=== PATIENT | male | born 2000 | race Caucasian/White ===

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

== ENCOUNTER → 2021-09-24 | Outpatient (CLI) | payer BC ==
--- NOTE | 2021-09-24 16:25 | Diagnostic Imaging Report ---
EXAMINATION: Magnetic resonance imaging of the right knee without intravenous contrast. DATE: September 24, 2021. COMPARISON: None. INDICATION: 21-year-old male, right knee pain. TECHNIQUE: Multiplanar, multisequence noncontrast enhanced MR imaging was accomplished. FINDINGS: MENISCI: The medial and lateral meniscus are somewhat dysmorphic in appearance although without identified tear. There is no meniscal extrusion. LIGAMENTS AND TENDONS: The tibial spines are absent with a congenital dysmorphic appearance of the proximal tibia. There is also congenital absence of normal appearance of the intracondylar aspect of the right distal femur. There is a posterior cruciate ligament with atypical posterior positioning of the tibial attachment site. The anterior cruciate ligament is not seen and is likely congenitally absent. The medial collateral ligament complex is intact. The lateral collateral ligament is intact. The iliotibial band is intact. The popliteus tendon is intact. The quadriceps tendon and patella ligament are intact. JOINT: The lateral patellar facet is elongated in length and somewhat flat in appearance. There is a very short medial patellar facet without clear cartilage overlying the medial patellar facet. There is no identified patellofemoral compartment cartilage defect. There is no clearly identified cartilage defect of the medial or lateral compartment. There is no knee joint effusion. BONE: There is a contour deformity of the posterior aspect of the lateral tibial plateau which likely relates to an impaction type fracture. There is marrow edema at this location. There is also linear low signal at this location which could relate to prior procedural related changes at this site. There is susceptibility artifact at the level of the proximal tibia which may reflect hardware currently present. The hardware is not well evaluated on MRI. The proximal fibula is absent. BURSAE AND SOFT TISSUES: There is fluid in the popliteus tendon sheath which may have a normal joint communication. There is no Marcelino's cyst. Additional soft tissue assessment is unremarkable. IMPRESSION: 1. 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 2. No identified meniscal tear. 3. Congenitally absent anterior cruciate ligament. Intact posterior cruciate ligament with atypical posterior insertion at the tibial attachment site. 4. No evidence of a ligament or tendon injury. 5. Abnormal contour of the posterior aspect of the lateral tibial plateau which may reflect an age-indeterminate fracture. There is marrow edema at this location although no clearly visible fracture line. There is suggestion of prior procedural related change in this region. Recommend correlation. Correlation with prior imaging may be of benefit to assess for stability. Dictated by: Dictated on workstation # [id number]
== END ==
LOC: RAD 14:18
DX: Q72.891 Other reduction defects of right lower limb (principal)
CPT/HCPCS: 73721